=== PATIENT | male | born 1960 | race African-American/Black ===

== ENCOUNTER 2024-03-09 02:15 | Emergency (ER) | payer MEDICARE, MEDICAID ==
[~2024-03-09] VITALS: Ht 175.3 cm; Wt 77.0 kg
[2024-03-09 02:20] VITALS: BP 116/66; PULSE 85; RESP 16; TEMP 98.3; O2SAT 98
== END 2024-03-09 05:30 | disposition left against medical advice (07) ==
LOC: ER 02:15
DX: M79.89 Other specified soft tissue disorders (principal); Z53.21 Procedure and treatment not carried out due to patient leaving prior to being seen by health care provider